=== PATIENT | male | born 1990 | race African-American/Black ===

== ENCOUNTER 2018-05-12 11:11 | Emergency (ER) | payer SELFPAY ==
[2018-05-12 11:16] VITALS: BP 139/72
[2018-05-12] MEDS ORDERED: DIPH/PERTUSS(ACELL)/TETANUS VAC/PF 0.5 ML SYR (>=10YO) IM ONE (11:20)
[2018-05-12] MEDS ORDERED: LIDOCAINE 1% INJ-PF (10 MG/ML) 30 ML SDV INJ ONE (11:28)
--- NOTE | 2018-05-12 11:34 | ER Document Report ---
ED Medical Screen (RME) - General Chief Complaint: Laceration Stated Complaint: EYE INJURY Time Seen by Provider: 05/12/18 11:21 TRAVEL OUTSIDE OF THE [place] 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 States no eye pain. No blurry vision - Related Data Allergies/Adverse Reactions: Penicillins Allergy (Verified 05/12/18 11:16) strawberry Allergy (Verified 05/12/18 11:16) Past Medical History - Social History Chew tobacco use (# tins/day): No Frequency of alcohol use: None Drug Abuse: None Renal/ Medical History: Denies: Hx Peritoneal Dialysis Review of Systems - Review of Systems Constitutional: Other - Facial laceration Physical Exam - Vital signs Vitals: Temp Pulse Resp BP Pulse Ox 99.1 F 83 16 139/72 H 100 05/12/18 11:15 05/12/18 11:15 05/12/18 11:15 05/12/18 11:15 05/12/18 11:15 - General General appearance: Appears well In distress: None - Respiratory Respiratory status: No respiratory distress Chest status: Nontender Breath sounds: Normal Chest palpation: Normal Course - Vital Signs Vital signs: Temp Pulse Resp BP Pulse Ox 99.1 F 83 16 139/72 H 100 05/12/18 11:15 05/12/18 11:15 05/12/18 11:15 05/12/18 11:15 05/12/18 11:15
--- NOTE | 2018-05-12 12:22 | ER Document Report ---
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 Today , he was on the ground, pulling on the limb which broke free and fell about 50 feet hitting him in the left face. Does not have any other findings except for his facial injuries. Denies neck pain. No neurologic deficits. No loss of consciousness no loss or change in his normal vision. He was not wearing eye protective goggles. TRAVEL OUTSIDE OF THE [place] IN LAST 30 DAYS: No - Related Data Allergies/Adverse Reactions: Penicillins Allergy (Verified 05/12/18 11:16) strawberry Allergy (Verified 05/12/18 11:16) Past Medical History - Social History Smoking Status: Current Every Day Smoker Chew tobacco use (# tins/day): No Frequency of alcohol use: None Drug Abuse: None Family History: Reviewed & Not Pertinent Patient has suicidal ideation: No Patient has homicidal ideation: No Surgical Hx: Negative Past Surgical History: Reports: None Review of Systems - Review of Systems Notes: REVIEW OF SYSTEMS: CONSTITUTIONAL : Denies fever. FACE: Large irregular laceration of the left face. EENT: Denies eye, ear, nose or mouth or throat pain or other symptoms. CARDIOVASCULAR: Denies chest pain. RESPIRATORY: Denies cough, chest congestion, or shortness of breath. GASTROINTESTINAL: Denies abdominal pain or nausea, vomiting, or diarrhea. GENITOURINARY: Denies difficulty or painful urinating, urinary frequency, blood in urine. MUSCULOSKELETAL: Denies back or neck pain. Denies joint pain or swelling. SKIN: Denies rash or skin lesions. NEUROLOGICAL: Denies LOC or altered mental status. Denies headache. Denies sensory loss or motor deficits. ALL OTHER SYSTEMS REVIEWED AND NEGATIVE. Physical Exam - Vital signs Vitals: Temp Pulse Resp BP Pulse Ox 99.1 F 83 16 139/72 H 100 05/12/18 11:15 05/12/18 11:15 05/12/18 11:15 05/12/18 11:15 05/12/18 11:15 Interpretation: Normal - Notes Notes: PHYSICAL EXAMINATION: GENERAL: Vital signs are all normal. HEAD: Large, irregular, curvilinear laceration of the left face extending from the infraorbital region around the lateral left socket and up into the lateral eyebrow. Patient says he was not wearing protective eyewear or even glasses at the time of the injury. EYES: Pupils equal round and reactive to light, extraocular movements intact. ENT: oropharynx clear without exudates. Moist mucous membranes. NECK: Normal range of motion, supple. LUNGS: Breath sounds clear and equal bilaterally. No rib tenderness. HEART: Regular rate and rhythm without murmurs. ABDOMEN: Soft, nontender. No guarding or rebound. No masses. BACK: No tenderness throughout entire back. EXTREMITIES: Normal range of motion without pain. NEUROLOGICAL: Normal speech, normal gait. Normal sensory, motor, and reflex exams. Awake, alert, and oriented x3. Cranial nerves normal. PSYCH: Normal mood, normal affect. SKIN: Warm, dry, no rashes. Course - Vital Signs Vital signs: Temp Pulse Resp BP Pulse Ox 99.1 F 83 16 139/72 H 100 05/12/18 11:15 05/12/18 11:15 05/12/18 11:15 05/12/18 11:15 05/12/18 11:15 Procedures - Laceration/Wound Repair Left Face Wound length (cm): 10 Wound's Depth, Shape: Linear - Most of the laceration is curvilinear, surprisingly in line as you might expect to see with someone who was wearing glasses, but the patient was not wearing glasses, Irregular, Flap - Lower, inferior border of the laceration in the left maxillary area forms a potential pocket., Contused tissue Laceration pre-procedure: Sterile PPE donned Anesthetic type: 1% Lidocaine w/epi Volume Anesthetic (mLs): 8 Wound explored: Contaminated, Foreign body removed - About 4 or 5 small pieces of stick or would present in the tissues, inside the cut. These were all removed. Digital examination of the laceration did not reveal any evidence of bone fracture. Irrigated w/ Saline (mLs): 1,000 Wound Debrided: None Wound Repaired With: Sutures Suture Size/Type: 5:0, Ethilon Number of Sutures: 9 Layer Closure?: No Post-procedure wound care: Sterile dressing applied Post-procedure NV exam normal: Yes Complications: No Adult Head Front/Back picture: 1 - General location depicted by drawing. Wound actually arises from the left lateral brow and goes down the lateral aspect of the orbit terminating in the mid left orbital rim. The eye itself appears to be intact with no entrapment of any of the ocular muscles. 2 - Laceration is curvilinear, not angulated as shown in this drawing. Discharge - Discharge Clinical Impression: Laceration of face Condition: Stable Disposition: HOME, SELF-CARE Additional Instructions: LACERATION CARE: Your laceration has been sutured to keep the skin edges aligned during healing. The time of suture removal depends on the nature and location of your cut. Please follow the care instructions the doctor has outlined for you and return for further care, according to the schedule you've been given. Keep the wound and dressing clean. Unless you were told otherwise, you may shower daily, blotting the wound dry with a clean, unused towel. At other times, If the dressing gets wet or blood soaked, remove it and blot the wound dry, then reapply a new dressing. Unless you were instructed otherwise, dressings should be changed at least daily. If any signs of infection occur (swelling, redness, drainage, increasing tenderness, red streaks, tender lumps in the armpit or groin above the laceration, or fever), see the doctor immediately. Your laceration was sutured with approximately 9 sutures. SOAP CLEANSING: Gently wash the wound daily using a mild soap (like Ivory, Phisoderm, Neutrogena). Use warm water, rubbing gently until all debris, ooze, and crusting have been washed from the wound. Allow to dry briefly (about 10 minutes) after cleaning. Repeat this cleansing at least three times a day for the first two days and then once or twice a day. ANTIBIOTIC OINTMENT PROTECTION: Your wounds are such that dressing them is not practical or optional. After cleansing, you should apply a thin coating of antibiotic ointment ( Bacitracin, not Neosporin) to the wounds at least three times daily. This lessens infection risk, and may decrease the amount of scarring. Use a q-tip or dull butter knife, not your finger, to apply this ointment. Any debris or ooze which builds up in the ointment should be gently rubbed off with a sterile gauze pad. Harder crusting may need to be gently scrubbed off with a clean wash cloth with soap and warm water, perhaps applying a warm, wet wash cloth to the wound for ten minutes first. Development of redness, severe itching, or blistering may mean allergy to the ointment. See the doctor. FOLLOW-UP CARE:. Your sutures should be removed in 6 - 7 days. To facilitate a timely removal of your sutures, you may return to the Emergency Department at [facility]. You do not need to call for an appointment, but the best time to come in for suture removal is early in the morning. If you have been referred to another physician for follow-up care, call that physicians office for an appointment as you were instructed. If you experience a significant change in your laceration, or if you are concerned there may be an infection (swelling, redness, drainage, increasing tenderness, red streaks, tender lumps in the armpit or groin above the laceration, or fever) , return to the Emergency Department immediately re-evaluation.
== END 2018-05-12 13:40 | disposition home or self-care (01) ==
LOC: ER 11:11
PROC: 0HQ1XZZ Repair Face Skin, External Approach (ICD-10-PCS; principal; 2018-05-12)
DX: S05.92XA Unspecified injury of left eye and orbit, initial encounter (principal); S01.82XA Laceration with foreign body of other part of head, initial encounter; W22.8XXA Striking against or struck by other objects, initial encounter; F17.200 Nicotine dependence, unspecified, uncomplicated
CPT/HCPCS: 99282